=== PATIENT | female | born 1940 | race Caucasian/White ===

== ENCOUNTER → 2021-07-07 15:29 | Outpatient (CLI) | payer MEDICARE, SELFPAY ==
--- NOTE | 2021-07-07 15:39 | XR_ITS ---
PROCEDURE: XR CHEST 2V CLINICAL HISTORY: PAIN OF LT SIDE OF BODY, RIB PAIN OF LT SIDE COMPARISON: No exams were available for comparison FINDINGS: Borderline cardiomegaly without failure. Atelectatic changes are present in the left perihilar region. A 1 cm nodular opacity is noted over the posterior aspect of the left 7th rib. Patchy peripheral density noted in the left midlung laterally. There is a small left pleural effusion. Increased density is present in the left lung base medially and may in part be due to a hiatal hernia. Air-fluid level is present in the retrocardiac region on the lateral view possibly within a hiatal hernia.. Degenerative changes thoracic spine. IMPRESSION: Small left effusion with left midlung atelectasis with possible infiltrate in the left mid to upper lobe laterally and a nonspecific nodular opacity also in this region. Follow-up suggested to confirm resolution Hiatal hernia Dictated by: Cristi Wells MD 07/07/2021 16:02 Cristi Wells MD in [facility] 07/07/2021 16:02
== END ==
PROVIDERS: PCP Family Medicine; Visit Provider Family Medicine
DX: R07.81 Pleurodynia (principal)
CPT/HCPCS: 71046

== ENCOUNTER 2021-07-14 10:48 | Emergency (ER) | payer MEDICARE, SELFPAY ==
[2021-07-14 10:49] VITALS: BP 143/63; PULSE 109; RESP 16; TEMP 36.7; O2SAT 94; BMI 38.9
--- NOTE | 2021-07-14 11:06 | XR_ITS ---
PROCEDURE: XR CHEST PORTABLE CLINICAL HISTORY: pain Chest pain COMPARISON: CR XR CHEST 2V from 07/07/2021 FINDINGS: Left hemidiaphragm is elevated obscuring the left heart border and left lung base. There is increased density in the left hilar region. This could be related to patient's pulmonary artery extension weighted by patient rotation. Non rotated exam suggested when patient can tolerate to exclude the possibility of a left hilar mass. Slight increased density is present in the left upper lobe laterally similar to the previous exam. The remaining lungs are clear. Left perihilar atelectatic changes have improved. Left pleural effusion is smaller. No acute bony abnormalities. IMPRESSION: Improved left sided atelectatic change and left-sided effusion with persistent opacity in the subpleural region of the left upper lobe which could be due to an area of infiltrate or nodule. Dictated by: Cristi Wells MD 07/14/2021 12:12 Cristi Wells MD in [facility] 07/14/2021 12:12
[2021-07-14 11:36] LABS: Basophils % 0.3 % (0.1-2.0); Chloride 94 mmol/L (98-107); Eosinophils % 0.3 % (0.1-12.0); Hematocrit 51.9 % (37.0-47.0); Hemoglobin 16.2 g/dL (12.2-16.2); Lymphocytes # 1.4 K/mm3 (0.7-4.5); Lymphocytes % 10.7 % (10-50); Mean Corpuscular HGB Conc 31.3 g/dL (31.8-35.4); Mean Corpuscular Hemoglobin 26.1 pg (27.0-31.2); Mean Corpuscular Volume 83.4 fl (81-99); Mean Platelet Volume 7.7 fl (7.4-10.4); Monocytes # 0.6 K/mm3 (0.1-1.0); Monocytes % 4.3 % (1.7-9.3); Neutrophils # 10.7 K/mm3 (1.8-7.8); Neutrophils % 84.4 % (37.0-80.0); Platelet Count 349 K/mm3 (142-424); Red Blood Count 6.22 M/mm3 (4.20-5.40); Red Cell Distribution Width 15.2 % (11.5-17.5); Sodium 129 mmol/L (136-145); White Blood Count 12.6 K/mm3 (4.8-10.8)
[2021-07-14 11:38] LABS: Alanine Aminotransferase 42 U/L (12-78); Aspartate Amino Transferase 59 U/L (14-36); Blood Urea Nitrogen 9 mg/dl (7-17); Creatinine Clearance Estimated 73 mL/min (50-200); Estimated Glomerular Filt Rate 97 ml/min (>60); GFR (African American) 117 ML/MIN (>60)
[2021-07-14 11:39] LABS: Albumin Level 3.2 g/dl (3.5-5.0); Albumin/Globulin Ratio 0.8 (1.1-1.8); Alkaline Phosphatase 245 U/L (38-126); Bilirubin,Total 1.3 mg/dl (0.2-1.3); Calcium 8.8 mg/dl (8.4-10.2); Carbon Dioxide 25 mmol/L (22.0-30.0); Globulin 4.2 g/dL (1.3-3.2); Lipase 26 U/L (23-300); Total Protein,Serum 7.4 g/dl (6.3-8.2)
[2021-07-14 11:41] LABS: Glucose 531 mg/dl (74-100)
--- NOTE | 2021-07-14 11:41 | PC.NURSE ---
lab called with critical glucose on pt, pt name and verified. critical results given to FANNY ALCALA
[2021-07-14 11:53] LABS: Coronavirus 19, PCR Not Detected (NotDetected); Influenza A, PCR Not Detected (NotDetected); Influenza B, PCR Not Detected (NotDetected)
[2021-07-14 11:54] LABS: Troponin I < 0.01 ng/ml (0.00-0.034)
--- NOTE | 2021-07-14 12:55 | HMH.EDGENADL ---
ED Disposition Clinical Impression: Hyperglycemia due to type 2 diabetes mellitus Qualifiers: Diabetes mellitus assisted insulin use: without assistant terminal manager use Qualified Code(s): E11.65 - Type 2 diabetes mellitus with hyperglycemia Disposition: Home, Self-Care Condition on Discharge: Good Prescriptions: Metformin HCl [Glucophage 500mg Tablet] 500 mg PO BID #60 tab Transmission Status: Pending to [facility] Referrals: José Ulloa MD [Primary Care Provider] - 07/16/21 11:30 am Time of Disposition: 14:54 - Critical Care Critical Care Time: No Attestation: On 07/14/21, the high probability of a clinically significant, sudden or life threatening deterioration of the following system(s) required my full and direct attention, intervention and personal management. The time I documented below is in addition to time spent performing reported procedures but includes the following listed in this critical care notation. Medical Decision Making - Medical Records Medical records reviewed: Yes: I reviewed the patient's medical records. - Constantino Inquiry Pt receiving controlled substance: No Vital Signs: 07/14/21 10:49 Temperature 98.1 F Temperature Source Oral Pulse Rate [Right Radial] 109 H Respiratory Rate 16 Blood Pressure [Right Arm] 143/63 H Blood Pressure Mean [Right Arm] 89 Blood Pressure Source [Right Arm] Automatic Cuff Blood Pressure Position [Right Arm] Sitting 02 Sat by Pulse Oximetry 94 L Oxygen Delivery Method Room Air - Lab Data Lab results reviewed: Yes: I reviewed the patient's lab results. Lab Results 07/14/21 11:21: WBC 12.6 H, RBC 6.22 H, Hgb 16.2, Hct 51.9 H, MCV 83.4, MCH 26.1 L, MCHC 31.3 L, RDW 15.2, Plt Count 349, MPV 7.7, Neut % (Auto) 84.4 H, Lymph % (Auto) 10.7, [place] % (Auto) 4.3, Eos % (Auto) 0.3, Baso % (Auto) 0.3, Neut # (Auto) 10.7 H, Lymph # (Auto) 1.4, [place] # (Auto) 0.6, Eos # (Auto) 0.0, Baso # (Auto) 0.0 07/14/21 11:21: Sodium 129 L, Potassium 4.0, Chloride 94 L, Carbon Dioxide 25, Anion Gap 14.0, BUN 9, Creatinine 0.60, Estimated Creat Clear 73, Estimated GFR 97, Est GFR ( Amer) 117, Glucose 531 H*, Calcium 8.8, Total Bilirubin 1.3, AST 59 H, ALT 42, Alkaline Phosphatase 245 H, Troponin I < 0.01, Total Protein 7.4, Albumin 3.2 L, Globulin 4.2 H, Albumin/Globulin Ratio 0.8 L, Lipase 26 07/14/21 11:38: SARS-CoV-2 (PCR) Not detected, Influenza A Untype (PCR) Not detected, Influenza Type B (PCR) Not detected 07/14/21 14:10: POC Glucose 390 H* Result diagrams: 07/14/21 11:21 07/14/21 11:21 Orders (Tests/Meds): ED MEDICATIONS Discontinued Medications Generic Name Dose Route Start Last Admin Trade Name Freq PRN Reason Stop Dose Admin Lactated Ringer's 1,000 mls @ 999 mls/hr 07/14/21 11:45 07/14/21 12:47 Lactated Ringer's 1000 Ml Bag IV 07/14/21 12:45 999 mls/hr .Q1H1M LOYDA Administration Insulin Human Regular 5 unit 07/14/21 11:44 07/14/21 13:22 Insulin Human Regular 100 Units/Ml 10ml Vial IVP 07/14/21 11:45 5 unit ONCE ONE Administration ORDERS Category Date Time Status Urinalysis and Microscopic Stat Lab 07/14/21 11:05 Ordered - Radiology Data #1 Image(s): Chest Image Reviewed: Yes I reviewed the patient's radiology results Preliminary Findings: Abnormal Improved left sided atelectatic change and left-sided effusion with persistent opacity in the subpleural region of the left upper lobe which could be due to an area of infiltrate or nodule. Medical Decision Narrative: 80yo F evaluated for uncertain reasons in the emergency department. Patient is in no acute distress on initial evaluation and her vital signs are normal. Broad work-up is initiated given the patient's vague complaints and symptoms. CBC is largely unremarkable but the patient's metabolic panel reveals a glucose of over 500. The patient states she is not diabetic and takes no medication for it. Patient is provided a liter of IV fluids as well as subcu insu
[2021-07-14 14:17] LABS: POC Glucose,Bedside 390 (70-110)
--- NOTE | 2021-07-14 14:46 | PC.NURSE ---
Calling Dr Ulloa at this time
--- NOTE | 2021-07-14 14:49 | PC.NURSE ---
speaking with Dr Ulloa
[2021-07-14 15:27] VITALS: BP 164/74; PULSE 103; RESP 16; TEMP 36.7; O2SAT 92
== END 2021-07-14 15:30 | disposition home or self-care (01) ==
PROVIDERS: Emergency Provider Family Medicine; PCP Family Medicine
DX: R10.32 Left lower quadrant pain (principal); R53.83 Other fatigue; E11.65 Type 2 diabetes mellitus with hyperglycemia; Z79.84 Long term (current) use of oral hypoglycemic drugs; Z20.822 Contact with and (suspected) exposure to COVID-19
CPT/HCPCS: 71045; 80053; 82962; 83690; 84484; 85025; 96365; 96375; 99283; C9803; U0003; U0005

== ENCOUNTER 2024-06-09 09:37 | Inpatient (IN) | payer MEDICARE, SELFPAY ==
[2024-06-09] VITALS (7 sets, daily range): BP systolic 107–168; BP diastolic 56–78; PULSE 83–108; RESP 11–22; TEMP 36.5–36.7; O2SAT 93–96; BMI 26.9; BMI 26.6
--- NOTE | 2024-06-09 09:42 | HMH.EDGENADL ---
Discharge Plan Disposition Patient Disposition: Admitted Clinical Impressions Clinical Impression: Rhabdomyolysis Discharge ED Provider: Isael Palma General Adult HPI General Chief complaint: Altered Mental Status Stated complaint: AMS Time Seen by Provider: 06/09/24 09:42 History of Present Illness HPI narrative: The patient presents with acute confusion and inability to ambulate independently. The patient's family member reports that she was found in the bathroom, unable to get up on her own and not aware of her surroundings. The duration of the patient's presence in the bathroom is unknown. The patient experienced a similar episode the previous day, where she was found lying on the living room floor but was able to move around after assistance. The patient denies any recent illness, cough, shortness of breath, pain during urination, or abdominal pain. She reports neck pain and soreness in her arm and back, which may be attributed to her position in the bathroom. The patient denies any falls or injuries. She has not had breakfast prior to the episode, and her blood sugar was measured at 202 mg/dL. Please note that above description of symptoms, in this electronic medical record under categorization of recalled from ER triage doctor by RN are reflective of an initial nursing assessment, however, is not reflective of my full history and physical exam that was personally taken and clarified. Consequentially, this preceding description of symptoms, which may include the patient's categorized chief complaint in the EMR, do not reflect my personal clinical impression, and the ultimate description of history of present illness and patient stated complaints should be deferred to this section of the note. Unless stated otherwise or congruent with this section of the note, additional signs, symptoms, or incongruence should be interpreted as inaccurate with my clinical impression. Related Data Home Medications ?Medication ?Instructions ?Recorded ?Confirmed amlodipine 5 mg-benazepril 20 mg 1 cap PO DAILY 10/21/21 06/09/24 capsule blood sugar diagnostic ([employer] #10 ea 10/21/21 06/09/24 Verio test strips) blood-glucose meter ([employer]uch #1 ea 10/21/21 06/09/24 Verio Reflect Meter) insulin syringe-needle U-100 0.5 #10 ea 10/21/21 06/09/24 mL 29 gauge x 1/2 (Sure Comfort Insulin Syringe U-100) lancets 33 gauge (OneTouch [employer] #100 ea 10/21/21 06/09/24 Plus Lancet) simvastatin 20 mg tablet 20 mg PO DAILY 10/21/21 06/09/24 dapagliflozin propanediol 5 mg 5 mg PO DAILY 12/13/23 06/09/24 tablet (Farxiga) semaglutide 1 mg/dose (4 mg/3 mL) 1 mg SQ WEEKLY 06/09/24 06/09/24 subcutaneous pen injector (Ozempic) Allergies Allergy/AdvReac Type Severity Reaction Status Date / Time No Known Allergies Allergy Verified 06/06/24 14:20 [facility] Disclaimer: The information contained in this section may have been updated after the patient was seen, as this information can be updated by other users. Social History Smoking Status: Never smoker alcohol intake: never substance use type: denies use current occupational status: retired Travel in the last 8 weeks: None ROS Obtained: Yes other As per HPI Physical Exam General General appearance: alert and in no apparent distress Head Head exam: atraumatic and normocephalic Eye Eye exam: Present normal appearance Neck Neck exam: Present normal inspection Chest Chest inspection: Present normal inspection and symmetric chest wall rise Respiratory Respiratory exam: Present normal lung sounds bilaterally; Absent respiratory distress Cardiovascular Cardiovascular exam: Present regular rate and normal rhythm Abdominal Exam Abdominal exam: Present soft; Absent tenderness Extremities Exam Extremities exam: Present normal inspection and full ROM; Absent tenderness Neurological Exam Neurological exam: Present alert Psychiatric Psychiatric exam: Present normal affect and normal mood Skin Skin exam: Present warm and dry Other Other exam information: No focal neurologic deficit appreciated, sacral decubitus ulcer. Paucity of speech. Limited recollection of event. Medical Decision Making Medical Records Medical records reviewed: Yes I reviewed the patient's medical records. Constantino Inquiry Pt receiving controlled substance: No Vital Signs: 06/09/24 09:38 06/09/24 10:30 06/09/24 11:00 Temperature 97.9 F Temperature Source Oral Pulse Rate 92 H 84 Pulse Rate [Right] 108 H Respiratory Rate 22 11 L 15 Blood Pressure 141/65 H 162/76 H Blood Pressure [Right Arm] 152/73 H Blood Pressure Mean [Right Arm] 99 Blood Pressure Source Blood Pressure Source [Right Arm] Automatic Cuff 02 Sat by Pulse Oximetry 95 94 L 96 Oxygen Delivery Method Room Air Room Air Room Air 08/11/24 13:23 Temperature 98.0 F Temperature Source Oral Pulse Rate 84 Pulse Rate [Right] Respiratory Rate 19 Blood Pressure 158/78 H Blood Pressure [Right Arm] Blood Pressure Mean [Right Arm] Blood Pressure Source Automatic Cuff Blood Pressure Source [Right Arm] 02 Sat by Pulse Oximetry Oxygen Delivery Method Room Air Lab Data Lab Results 06/09/24 09:53: VBG pH 7.33, VBG pCO2 40.1, VBG pO2 44.5 H, VBG HCO3 20.7 L, VBG Total CO2 21.9 L, VBG O2 Saturation 80.7 H, VBG Base Excess -5.2 L, VBG Lactic Acid 3.5 H, Sodium 141, Potassium 4.0, Chloride 106, Carbon Dioxide 22, Anion Gap 17.0 H, BUN 31 H, Creatinine 1.20 H, Estimated GFR 43 L, Est GFR ( Amer) 52 L, Glucose 202 H, Calcium 10.0, Magnesium 2.2, Total Bilirubin 2.0 H, AST 130 H, ALT 63, Alkaline Phosphatase 114, Total Creatine Kinase 3963 H*, Total Protein 9.0 H, Albumin 4.8, Globulin 4.2 H, Albumin/Globulin Ratio 1.1, Lipase 76 06/09/24 10:17: Urine Color Yellow, Urine Appearance Clear, Urine pH 5.5, Ur Specific [place] 1.015, Urine Protein Trace, Urine Glucose (UA) 3+, Urine Ketones 1+, Urine Blood 2+, Urine Nitrate Negative, Urine Bilirubin Negative, Urine Urobilinogen 0.2, Ur Leukocyte Esterase Negative, Urine RBC 3-5, Urine WBC Occasional, Ur Squamous Epith Cells 3-5, Urine Bacteria Trace, Hyaline Casts Occasional, Urine Mucus Trace 06/09/24 10:25: WBC 12.4 H, RBC 5.97 H, Hgb 17.2 H, Hct 55.8 H, MCV 93.4, MCH 28.9, MCHC 30.9 L, RDW 14.0, Plt Count 311, MPV 8.3, Neut % (Auto) 84.2 H, Lymph % (Auto) 9.1 L, [place] % (Auto) 5.4, Eos % (Auto) 0.9, Baso % (Auto) 0.4, Neut # (Auto) 10.5 H, Lymph # (Auto) 1.1, [place] # (Auto) 0.7, Eos # (Auto) 0.1, Baso # (Auto) 0.1 06/09/24 10:25 06/09/24 09:53 Orders (Tests/Meds): ED MEDICATIONS Generic Name Dose Route Start Last Admin Trade Name Freq PRN Reason Stop Dose Admin Acetaminophen 650 mg 06/09/24 13:01 Acetaminophen 325mg Tab PO 07/09/24 13:00 Q4HP PRN Fever or Mild Pain (1-3) Heparin Sodium (Porcine) 5,000 unit 06/09/24 13:15 06/09/24 13:59 Heparin Sodium 5,000 Unit/Ml Vial SQ 07/09/24 13:14 5,000 unit Q8H LOYDA Administration Sodium Chloride 1,000 mls @ 50 mls/hr 06/09/24 13:15 06/09/24 13:59 Sod Chlor 0.9% 1000ml Bag IV 07/09/24 13:14 50 mls/hr .Q20H LOYDA Administration Ondansetron HCl 4 mg 06/09/24 13:01 Ondansetron 4mg/2ml Vial IV 07/09/24 13:00 Q8HP PRN Nausea Discontinued Medications Generic Name Dose Route Start Last Admin Trade Name Freq PRN Reason Stop Dose Admin Lactated Ringer's 1,000 mls @ 999 mls/hr 06/09/24 10:24 06/09/24 11:09 Lactated Ringer's 1000 Ml Bag IV 06/09/24 11:24 Not Given .Q1H1M ONE Lactated Ringer's 1,570 mls @ 785 mls/hr 06/09/24 10:59 06/09/24 10:30 Lactated Ringer's 1000 Ml Bag 30 ml/kg infuse over 2 hr (1570 ml) 06/09/24 12:58 785 mls/hr IV Administration .Q2H ONE ORDERS Category Date Time Status CT cervical spine wo con Stat Cat Scan 06/09/24 09:[address] head/brain wo con Stat Cat Scan 06/09/24 09:58 Completed XR chest portable Stat Exams 06/09/24 10:58 Completed Basic Metabolic Panel AMLAB Lab 06/10/24 06:00 Ordered Basic Metabolic Panel AMLAB Lab 06/11/24 06:00 Ordered Basic Metabolic Panel AMLAB Lab 06/12/24 06:00 Ordered CBC w/Auto Diff [Complete Blood Count Auto Diff] Stat Lab 06/09/24 10:25 Completed CK [Creatine Kinase] Stat Lab 06/09/24 09:53 Completed CMP [Comprehensive Metabolic Panel] Stat Lab 06/09/24 09:53 Completed Complete Blood Count Auto Diff AMLAB Lab 06/10/24 06:00 Ordered Complete Blood Count Auto Diff AMLAB Lab 06/11/24 06:00 Ordered Complete Blood Count Auto Diff AMLAB Lab 06/12/24 06:00 Ordered Lipase Stat Lab 06/09/24 09:53 Completed MAG [Magnesium] Stat Lab 06/09/24 09:53 Completed Urinalysis and Microscopic Stat Lab 06/09/24 10:17 Completed Blood Culture Stat Micro 06/09/24 08:53 Received Urine Culture Stat Micro 06/09/24 10:17 Received VBG [Venous Blood Gas] Stat RT 06/09/24 09:53 Completed Medical Decision Narrative: Patient with history and exam per above presenting for evaluation of altered mental status Diagnoses considered include electrolyte abnormality, intracranial hemorrhage, no clinical evidence to suggest stroke at this time, differential also includes hypoglycemia, hypovolemia, electrolyte abnormality, infectious precipitant. ED workup and treatment included: ED MEDICATIONS Generic Name Dose Route Start Last Admin Trade Name Freq PRN Reason Stop Dose Admin Acetaminophen 650 mg 06/09/24 13:01 Acetaminophen 325mg Tab PO 07/09/24 13:00 Q4HP PRN Fever or Mild Pain (1-3) Heparin Sodium (Porcine) 5,000 unit 06/09/24 13:15 06/09/24 13:59 Heparin Sodium 5,000 Unit/Ml Vial SQ 07/09/24 13:14 5,000 unit Q8H LOYDA Administration Sodium Chloride 1,000 mls @ 50 mls/hr 06/09/24 13:15 06/09/24 13:59 Sod Chlor 0.9% 1000ml Bag IV 07/09/24 13:14 50 mls/hr .Q20H LOYDA Administration Ondansetron HCl 4 mg 06/09/24 13:01 Ondansetron 4mg/2ml Vial IV 07/09/24 13:00 Q8HP PRN Nausea Discontinued Medications Generic Name Dose Route Start Last Admin Trade Name Freq PRN Reason Stop Dose Admin Lactated Ringer's 1,000 mls @ 999 mls/hr 06/09/24 10:24 06/09/24 11:09 Lactated Ringer's 1000 Ml Bag IV 06/09/24 11:24 Not Given .Q1H1M ONE Lactated Ringer's 1,570 mls @ 785 mls/hr 06/09/24 10:59 06/09/24 10:30 Lactated Ringer's 1000 Ml Bag 30 ml/kg infuse over 2 hr (1570 ml) 06/09/24 12:58 785 mls/hr IV Administration .Q2H ONE ORDERS Category Date Time Status CT cervical spine wo con Stat Cat Scan 06/09/24 09:[address] head/brain wo con Stat Cat Scan 06/09/24 09:58 Completed XR chest portable Stat Exams 06/09/24 10:58 Completed Basic Metabolic Panel AMLAB Lab 06/10/24 06:00 Ordered Basic Metabolic Panel AMLAB Lab 06/11/24 06:00 Ordered Basic Metabolic Panel AMLAB Lab 06/12/24 06:00 Ordered CBC w/Auto Diff [Complete Blood Count Auto Diff] Stat Lab 06/09/24 10:25 Completed CK [Creatine Kinase] Stat Lab 06/09/24 09:53 Completed CMP [Comprehensive Metabolic Panel] Stat Lab 06/09/24 09:53 Completed Complete Blood Count Auto Diff AMLAB Lab 06/10/24 06:00 Ordered Complete Blood Count Auto Diff AMLAB Lab 06/11/24 06:00 Ordered Complete Blood Count Auto Diff AMLAB Lab 06/12/24 06:00 Ordered Lipase Stat Lab 06/09/24 09:53 Completed MAG [Magnesium] Stat Lab 06/09/24 09:53 Completed Urinalysis and Microscopic Stat Lab 06/09/24 10:17 Completed Blood Culture Stat Micro 06/09/24 08:53 Received Urine Culture Stat Micro 06/09/24 10:17 Received VBG [Venous Blood Gas] Stat RT 06/09/24 09:53 Completed Labs were independently interpreted by me, significant for acute kidney injury, CK 3963, consistent with rhabdomyolysis. Chronic leukocytosis. Imaging was independently visualized and interpreted by me, significant for no acute finding Please refer to radiology report for full details. My clinical impression at this time is most consistent with rhabdomyolysis. Patient will be admitted to hospital medicine service for further management. Critical Care Critical Care Time Critical Care Time: No
--- NOTE | 2024-06-09 09:52 | PC.NURSE ---
DR SEALS AT BEDSIDE
--- NOTE | 2024-06-09 09:58 | CT_ITS ---
PROCEDURE INFORMATION: Exam: CT Head Without Contrast Exam date and time: 06/09/2024 11:17 AM Age: 83 years old Clinical indication: Injury or trauma; Fall; Additional info: AMS, recent fall TECHNIQUE: Imaging protocol: Computed tomography of the head without contrast. Radiation optimization: All CT scans at this facility use at least one of these dose optimization techniques: automated exposure control; mA and/or kV adjustment per patient size (includes targeted exams where dose is matched to clinical indication); or iterative reconstruction. COMPARISON: No relevant prior studies available. FINDINGS: Brain: Extensive hypodensity is seen in the periventricular cerebral white matter. This change is nonspecific but is most likely secondary to chronic ischemia within microvascular distributions. No other intra or extra-axial masses, lesions or collections. [place] white matter distinction is maintained throughout the brain. No radiographic evidence of intracranial hemorrhage. No radiographic evidence of acute intracranial pathology. Cerebral ventricles: Ventricles are enlarged on the basis of mild diffuse cerebral volume loss. Paranasal sinuses: Polyp versus retention cyst within the left maxillary sinus. Mastoid air cells: Visualized mastoid air cells are well aerated. Bones: Unremarkable. No acute fracture. Soft tissues: Unremarkable. IMPRESSION: No radiographic evidence of acute intracranial pathology. Extensive small vessel ischemic changes.
--- NOTE | 2024-06-09 09:58 | CT_ITS ---
PROCEDURE INFORMATION: Exam: CT Cervical Spine Without Contrast Exam date and time: 06/09/2024 11:20 AM Age: 83 years old Clinical indication: Injury or trauma; Additional info: AMS, recent fall TECHNIQUE: Imaging protocol: Computed tomography of the cervical spine without contrast. Radiation optimization: All CT scans at this facility use at least one of these dose optimization techniques: automated exposure control; mA and/or kV adjustment per patient size (includes targeted exams where dose is matched to clinical indication); or iterative reconstruction. COMPARISON: CT HEAD/BRAIN WO CON 06/09/2024 11:17 AM FINDINGS: Bones: Alignment normal. posterior vertebral line and the spinal laminar line normal. odontoid process normal. no fracture. degenerative disc disease most pronounced C4-C5, C5-C6 and C6-C7 reflected as disk space narrowing and anterior osteophyte formation. Paranasal sinuses: Polyp versus retention cyst within the left maxillary sinus. Lungs: Lung apices are normal. Vasculature: Dense carotid vascular calcifications Soft tissues: Unremarkable. IMPRESSION: Degenerative disc disease most pronounced C4-C5, C5-C6 and C6-C7 reflected as disk space narrowing and anterior osteophyte formation.
--- NOTE | 2024-06-09 09:59 | PC.NURSE ---
notified resp of vbg order
[2024-06-09 10:01] LABS: VBG Base Excess -5.2 mmol/L (-2.4-2.3); VBG HCO3 20.7 mmol/L (23-30); VBG Oxygen Saturation 80.7 % (50-70); VBG PCO2 40.1 mmol/L (35-51); VBG PH 7.33 mmol/L (7.31-7.41); VBG PO2 44.5 mmol/L (28-40); VBG Total CO2 21.9 mmol/L (23-27)
[2024-06-09 10:02] LABS: Lactate Venous 3.5 mmol/L (0.4-2.0)
[2024-06-09 10:11] LABS: Albumin Level 4.8 g/dl (3.5-5.0); Chloride 106 mmol/L (98-107); Sodium 141 mmol/L (136-145)
[2024-06-09 10:14] LABS: Alanine Aminotransferase 63 U/L (12-78); Albumin/Globulin Ratio 1.1 (1.1-1.8); Alkaline Phosphatase 114 U/L (38-126); Aspartate Amino Transferase 130 U/L (14-36); Blood Urea Nitrogen 31 mg/dl (7-17); Carbon Dioxide 22 mmol/L (22.0-30.0); Estimated Glomerular Filt Rate 43 ml/min (>60); GFR (African American) 52 ML/MIN (>60); Globulin 4.2 g/dL (1.3-3.2); Magnesium 2.2 mg/dl (1.6-2.3)
[2024-06-09 10:15] LABS: Glucose 202 mg/dl (74-100)
[2024-06-09 10:29] LABS: Microscopic, Urine URINE MICROSCOPIC (MICROSCOPIC)
[2024-06-09 10:30] LABS: Appearance,Urine CLEAR (Clear); Bilirubin,Urine Negative (Negative); Blood, Urine 2+ (Negative); Color,Urine YELLOW (Yellow); Glucose,Urine (UA) 3+ (Negative); Ketones,Urine 1+ (Negative); Leukocyte Esterase,Urine Negative (Negative); Nitrate,Urine Negative (Negative); PH,Urine 5.5 (5.0-8.5); Protein,Urine TRACE (Negative); Specific Gravity, Urine 1.015 (1.005-1.030); Urobilinogen,Urine 0.2 EU/dl (0.2)
[2024-06-09] MEDS: LACTATED RINGERS 1000ML 1,570 ML 785 ML IV (10:30)
[2024-06-09 10:36] LABS: Basophils # 0.1 K/mm3 (0-0.2); Basophils % 0.4 % (0.1-2.0); Eosinophils # 0.1 K/mm3 (0.0-0.4); Eosinophils % 0.9 % (0.1-12.0); Hematocrit 55.8 % (37.0-47.0); Hemoglobin 17.2 g/dL (12.2-16.2); Lymphocytes # 1.1 K/mm3 (0.7-4.5); Lymphocytes % 9.1 % (10-50); Mean Corpuscular HGB Conc 30.9 g/dL (31.8-35.4); Mean Corpuscular Hemoglobin 28.9 pg (27.0-31.2); Mean Corpuscular Volume 93.4 fl (81-99); Mean Platelet Volume 8.3 fl (7.4-10.4); Monocytes # 0.7 K/mm3 (0.1-1.0); Monocytes % 5.4 % (1.7-9.3); Neutrophils # 10.5 K/mm3 (1.8-7.8); Neutrophils % 84.2 % (37.0-80.0); Platelet Count 311 K/mm3 (142-424); Red Blood Count 5.97 M/mm3 (4.20-5.40); White Blood Count 12.4 K/mm3 (4.8-10.8)
[2024-06-09 10:38] LABS: Bacteria,Urine Trace /lpf; Hyaline Casts,Urine Occasional #/lpf (0); Mucus,Urine Trace /lpf; WBC,Urine Occasional #/hpf (0-3)
[2024-06-09 10:43] LABS: Lipase 76 U/L (23-300)
--- NOTE | 2024-06-09 10:58 | XR_ITS ---
PROCEDURE INFORMATION: Exam: XR Chest Exam date and time: 06/09/2024 11:18 AM Age: 83 years old Clinical indication: Other: AMS; Additional info: AMS, concern for pna TECHNIQUE: Imaging protocol: Radiologic exam of the chest. Views: 1 view. COMPARISON: CR XR CHEST PORTABLE 07/14/2021 11:29 AM FINDINGS: Lungs: Regions of parenchymal scarring left lung base. Pleural spaces: Minimal blunting left costophrenic angle. Could not exclude small pleural effusion. Heart/Mediastinum: Unremarkable. No cardiomegaly. Bones/joints: Unremarkable. IMPRESSION: Minimal blunting left costophrenic angle. Could not exclude small pleural effusion.
--- NOTE | 2024-06-09 11:09 | PC.NURSE ---
I let Dr. Palma know that with s suspected infection, 2 SIRS, and Lactic of 3.4 pt meets severe sepsis risk. He wants to hold off on antibiotics at this time as urine is likely not the source now so I put in a chest xray .
--- NOTE | 2024-06-09 11:15 | PC.NURSE ---
Pt has been taken to ct scan via stretcher. I did ask Dr. Palma if he'd like to add on a ct abd/pelv d/t the elevated bilirubin, hematuria, and family concerns of pelvic mesh surgery hx. Dr. Palma stated he does not wish to scan her abd/pelv at this time as she was not tender on exam.
[2024-06-09 12:58] LABS: Creatine Kinase 3963 U/L (30-135)
--- NOTE | 2024-06-09 12:59 | PC.NURSE ---
DR SEALS SPEAKING WITH DR HUNTER FOR ADMISSION
--- NOTE | 2024-06-09 13:09 | PC.NURSE ---
DERRICK WORKER NOTIFIED OF ADMISSION
--- NOTE | 2024-06-09 13:22 | PC.NURSE ---
Gave report to Ab Ham RN on Med/Surg
[2024-06-09] MEDS: HEPARIN SODIUM 5,000 UNIT/ML VIAL 5000 UNIT SQ ×2 (13:59→21:15)
[2024-06-09] MEDS: 0.9 % SODIUM CHLORIDE 1000ML 1,000 ML 50 ML IV (13:59)
[2024-06-09 14:03] LABS: Reflex Lactic Add Lactic Reflex
--- NOTE | 2024-06-09 14:21 | HMH.PHAINT1 ---
Pharmacy Intervention Comments: MEDICATION RECONCILIATION COMPLETE USING EXTERNAL PHARMACY FILL HISTORY AND MOST RECENT PODIATRY OFFICE NOTE.
[2024-06-09 14:47] LABS: Lactic Acid Follow Up (RFLX 1) 1.7 mmol/L (0.7-2.1)
--- NOTE | 2024-06-09 16:28 | P.HP_ITS ---
History of Present Illness *Admission Date: 06/09/24 *Reason for visit:: Fall *History of present illness: Patient is a 83-year-old female with past medical history of diabetes mellitus who presents to the hospital due to complaints of difficulty ambulation as well as generalized weakness. According to the patient's family patient has been feeling very weak and was not able to get out of the bath, I felt. Patient was found lying down on the ground in the living room. Patient otherwise denied chest pain shortness of breath nausea vomiting diarrhea constipation dysuria. On further evaluation patient was found to have elevated creatinine and CK levels. [facility] Disclaimer: The information contained in this section may have been updated after the patient was seen, as this information can be updated by other users. Social History Smoking Status: Never smoker alcohol intake: never substance use type: denies use current occupational status: retired Travel in the last 8 weeks: None Review of Systems Review of Systems Review of systems:: pertinent systems reviewed and negative unless documented below Meds Home Medications and Allergies Home Medications ?Medication ?Instructions ?Recorded ?Confirmed ?Type amlodipine 5 mg-benazepril 20 mg 1 cap PO DAILY 10/21/21 06/09/24 History capsule blood sugar diagnostic (OneTouch #10 ea 10/21/21 06/09/24 History Verio test strips) blood-glucose meter (OneTouch #1 ea 10/21/21 06/09/24 History Verio Reflect Meter) insulin syringe-needle U-100 0.5 #10 ea 10/21/21 06/09/24 History mL 29 gauge x 1/2 (Sure Comfort Insulin Syringe U-100) lancets 33 gauge (OneTouch Delica #100 ea 10/21/21 06/09/24 History Plus Lancet) simvastatin 20 mg tablet 20 mg PO DAILY 10/21/21 06/09/24 History dapagliflozin propanediol 5 mg 5 mg PO DAILY 12/13/23 06/09/24 History tablet (Farxiga) semaglutide 1 mg/dose (4 mg/3 mL) 1 mg SQ WEEKLY 06/09/24 06/09/24 History subcutaneous pen injector (Ozempic) New Prescriptions to Start Prescriptions: Allergies Allergy/AdvReac Type Severity Reaction Status Date / Time No Known Allergies Allergy Verified 06/06/24 14:20 Exam Data for Last 24 hours Vital signs and Labs for Last 24 Hours: Temp Pulse Resp BP Pulse Ox O2 Del Method 97.7 F 83 17 141/77 H 93 L Room Air 06/09/24 13:50 06/09/24 13:50 06/09/24 13:50 06/09/24 13:50 06/09/24 13:50 06/09/24 13:50 Laboratory Results - last 24 hr 06/09/24 09:53: VBG pH 7.33, VBG pCO2 40.1, VBG pO2 44.5 H, VBG HCO3 20.7 L, VBG Total CO2 21.9 L, VBG O2 Saturation 80.7 H, VBG Base Excess -5.2 L, VBG Lactic Acid 3.5 H, Sodium 141, Potassium 4.0, Chloride 106, Carbon Dioxide 22, Anion Gap 17.0 H, BUN 31 H, Creatinine 1.20 H, Estimated GFR 43 L, Est GFR ( Amer) 52 L, Glucose 202 H, Calcium 10.0, Magnesium 2.2, Total Bilirubin 2.0 H, AST 130 H, ALT 63, Alkaline Phosphatase 114, Total Creatine Kinase 3963 H*, Total Protein 9.0 H, Albumin 4.8, Globulin 4.2 H, Albumin/Globulin Ratio 1.1, Lipase 76 06/09/24 10:17: Urine Color Yellow, Urine Appearance Clear, Urine pH 5.5, Ur Specific [place] 1.015, Urine Protein Trace, Urine Glucose (UA) 3+, Urine Ketones 1+, Urine Blood 2+, Urine Nitrate Negative, Urine Bilirubin Negative, Urine Urobilinogen 0.2, Ur Leukocyte Esterase Negative, Urine RBC 3-5, Urine WBC Occasional, Ur Squamous Epith Cells 3-5, Urine Bacteria Trace, Hyaline Casts Occasional, Urine Mucus Trace 06/09/24 10:25: WBC 12.4 H, RBC 5.97 H, Hgb 17.2 H, Hct 55.8 H, MCV 93.4, MCH 28.9, MCHC 30.9 L, RDW 14.0, Plt Count 311, MPV 8.3, Neut % (Auto) 84.2 H, Lymph % (Auto) 9.1 L, [place] % (Auto) 5.4, Eos % (Auto) 0.9, Baso % (Auto) 0.4, Neut # (Auto) 10.5 H, Lymph # (Auto) 1.1, [place] # (Auto) 0.7, Eos # (Auto) 0.1, Baso # (Auto) 0.1 06/09/24 14:15: Lactate 1.7 I & O for Last 24 hours: Intake & Output 06/06/24 06/07/24 06/08/24 06/09/24 23:59 23:59 23:59 23:59 Intake Total 1800 / 1800 Balance 1800 / 1800 Weight 68.294 kg Constitutional Constitutional: no acute distress *Routine HEENT Exam Head: Present normocephalic Eye: Present EOMI and PERRL ENT: Present mucous membranes moist *Routine Neck Exam Neck: Present supple; Absent lymphadenopathy *Routine Respiratory Exam Respiratory: Present CTA bilaterally *Routine Cardiovascular Exam Cardiovascular: Present RRR *Routine Abdominal Exam Abdominal: Present soft and normoactive bowel sounds; Absent tenderness *Routine Rectal Exam Rectal:: deferred *Routine Genitalia Exam Genitalia:: deferred *Routine Extremities Exam Extremities: Absent cyanosis, clubbing or edema *Routine Skin Exam Skin: Present warm; Absent rash *Routine Neurological Exam Neurological: Present alert and oriented X3 Assessment and Plan *Assessment and plan (1) Rhabdomyolysis: Status: Acute Category: Medical Code(s): M62.82 - Rhabdomyolysis (2) Type 2 diabetes mellitus: Status: Acute Qualifiers: Diabetes mellitus group home insulin use: with safety net maker use Diabetes mellitus complication status: with other specified complication Qualified Code(s): E11.69 - Type 2 diabetes mellitus with other specified complication; Z79.4 - custodial (current) use of insulin Category: Medical Code(s): E11.9 - Type 2 diabetes mellitus without complications (3) PEACE (acute kidney injury): Status: Acute Category: Medical Code(s): N17.9 - Acute kidney failure, unspecified Plan Patient is a 83-year-old female with past medical history of diabetes mellitus who presents to the hospital due to complaints of difficulty ambulation as well as generalized weakness. According to the patient's family patient has been feeling very weak and was not able to get out of the bath, I felt. Patient was found lying down on the ground in the living room. Patient otherwise denied chest pain shortness of breath nausea vomiting diarrhea constipation dysuria. On further evaluation patient was found to have elevated creatinine and CK levels. Assessment and plan Generalized weakness, difficulty ambulation likely secondary to rhabdomyolysis Acute kidney injury Start IV fluids with normal saline Monitor CK level and creatinine level Holding statins Monitor and replace electrolytes Hold nephrotoxic medications Diabetes mellitus Insulin sliding scale DVT PPx - Heparin
[2024-06-09 18:36] LABS: Creatine Kinase 4472 U/L (30-135)
[2024-06-09 20:22] LABS: POC Glucose,Bedside 227 (70-110)
[2024-06-09] MEDS: humaLOG 100 UNITS/ML 10ML VIAL (SSI) SQ (22:14)
--- NOTE | 2024-06-10 00:27 | PC.WOUNDNOTE ---
unstagable to left buttock
[2024-06-10] MEDS: NYSTATIN TOPICAL POWDER 30GM TP ×3 (00:57→21:01)
[2024-06-10] MEDS: ACETAMINOPHEN 325MG TAB 650 MG PO (01:15)
[2024-06-10] MEDS: 0.9 % SODIUM CHLORIDE 1000ML 1,000 ML 125 ML IV ×2 (03:06→15:12)
--- OUTSIDE RECORDS SUMMARY | 2024-06-10 03:22 | XMS_ITS ---
Author Organization [facility] No information ASSESSMENT No information CHIEF COMPLAINT No information Vital Signs Bpsitting Date Temperature Heartrate Weight Height Spo2 Bmi Fiel dcount Timerecorded 164/80 2023- 3-05 97.9 95 165,0 5,3 95 29.2 3 7 10:15 OBJECTIVE DATA No information PHYSICAL EXAMINATION No information TREATMENT PLAN No information PROBLEMS No information RESULTS No information REVIEW OF SYSTEMS No information SUBJECTIVE DATA No information MEDICATIONS No information
--- OUTSIDE RECORDS SUMMARY | 2024-06-10 03:22 | XMS_ITS ---
Author Name Dayday Acosta Address [address] [place] [id number] Organization Unknown Address [address] [place] [id number] [facility] No information ASSESSMENT No information CHIEF COMPLAINT No information MEDICATIONS No information OBJECTIVE DATA No information PHYSICAL EXAMINATION No information TREATMENT PLAN Planned Care Start Date Provider Encounter for Check-up [id number] AC Navarro PROBLEMS No information RESULTS No information REVIEW OF SYSTEMS No information SUBJECTIVE DATA No information VITAL SIGNS No information
[2024-06-10 04:00] VITALS: BP 129/58; PULSE 87; RESP 16; TEMP 36.8; O2SAT 94; BMI 27.6
--- NOTE | 2024-06-10 05:25 | PC.NURSE ---
Alert to name, birthday, and place. Developed low grade fever, treated per dec, no fever as of 399 vital signs. Pt answers most yes/no questions, but does not say a lot. Q2 turn. Unstagable noted to upper buttock. [place]ne area excoriated. Nystatin powder applied. Stage 2 noted to Right heel, padded patch applied, heel protectors in place. No complaints from patient, has rested well throughout the shift. ACHS FS, treated per dec. Bed alarm on, call light in reach.
[2024-06-10] MEDS: HEPARIN SODIUM 5,000 UNIT/ML VIAL 5000 UNIT SQ ×3 (06:14→20:54)
[2024-06-10 06:28] LABS: Basophils # 0.1 K/mm3 (0-0.2); Basophils % 0.6 % (0.1-2.0); Eosinophils % 0.2 % (0.1-12.0); Hematocrit 41.3 % (37.0-47.0); Lymphocytes # 1.9 K/mm3 (0.7-4.5); Lymphocytes % 22.5 % (10-50); Mean Corpuscular HGB Conc 36.5 g/dL (31.8-35.4); Mean Corpuscular Hemoglobin 34.2 pg (27.0-31.2); Mean Corpuscular Volume 93.6 fl (81-99); Mean Platelet Volume 8.4 fl (7.4-10.4); Monocytes # 0.5 K/mm3 (0.1-1.0); Monocytes % 6.1 % (1.7-9.3); Neutrophils # 6.1 K/mm3 (1.8-7.8); Neutrophils % 70.6 % (37.0-80.0); Platelet Count 230 K/mm3 (142-424); Red Blood Count 4.41 M/mm3 (4.20-5.40); Red Cell Distribution Width 14.2 % (11.5-17.5); White Blood Count 8.6 K/mm3 (4.8-10.8)
[2024-06-10 06:39] LABS: Hemoglobin 14.9 g/dL (12.2-16.2)
[2024-06-10 06:41] LABS: Anion Gap 7.6 mEq/L (5-15); Blood Urea Nitrogen 27 mg/dl (7-17); Calcium 8.6 mg/dl (8.4-10.2); Carbon Dioxide 24 mmol/L (22.0-30.0); Chloride 117 mmol/L (98-107); Creatinine Clearance Estimated 48 mL/min (50-200); Estimated Glomerular Filt Rate 69 ml/min (>60); GFR (African American) 83 ML/MIN (>60); Glucose 139 mg/dl (74-100); Potassium 3.6 mmoL/L (3.5-5.1); Sodium 145 mmol/L (136-145)
[2024-06-10 08:00] VITALS: BP 148/72; PULSE 78; RESP 16; TEMP 36.8; O2SAT 94
[2024-06-10] MEDS: DAPAGLIFLOZIN PROPANEDIOL 10 MG TABLET 5 MG PO (09:12)
--- NOTE | 2024-06-10 09:48 | HMH.PTEV ---
Physical Therapy Evaluation Rehab PT IP Evaluation Start: 06/10/24 07:55 Freq: ONCE Status: Active Protocol: Document 06/10/24 09:33 CHAVO (Rec: 06/10/24 09:47 CHAVO [id number]) Subjective/History History History H&P: Patient is a 83-year-old female with past medical history of diabetes mellitus who presents to the hospital due to complaints of difficulty ambulation as well as generalized weakness. According to the patient's family patient has been feeling very weak and was not able to get out of the bath, I felt. Patient was found lying down on the ground in the living room. Patient otherwise denied chest pain shortness of breath nausea vomiting diarrhea constipation dysuria. On further evaluation patient was found to have elevated creatinine and CK levels. Subjective Subjective Pt is questionable historian. Pt demo'd slow processing and unable to answer some questions. Pt reports she lives with her who is there during the day. Pt reports she was IND prior to admission without use of assist device. New diagnosis of cancer in past 12 No months? Rehab PT IP Eval Objective Appearance Patient Behavior Confused Patient Orientation Person Difficulty following instructions moderate Speech Pattern Soft-Spoken Ambulation Patient Able to Ambulate Yes Ambulation Observation IP General Gait Pattern Observation Wide Based Gait Ambulation Distance (feet) 3 Ambulation Assistive Device None Ambulation Ability Minimal x 1 (25% assist) Balance Ability to Arise Able, uses arms to help Sitting Balance Steady, safe Standing Balance Unsteady Transfers Bed Transfer Ability Moderate x 1 (50% assist) Sit to Stand Bed Transfer Ability Minimal x 1 (25% assist) Rehab PT IP prob,goals,plan Problems Date of Evaluation: 06/10/24 PT IP Problems Bed Mobility,Transfers,Gait, Balance,Self care,Safety Rehab Potential Rehab Potential Good Equipment Needs Assistive Devices Rolling / Wheeled Walker Plan PT Intervention Plan Bed Mobility,Transfers,Gait, Balance,Safety,Therapeutic Exercise Other Intervention Plan 1-2 times PT Plan Frequency Daily Duration LOS Discharge Goals Bed Transfer Ability Minimal x 1 (25% assist) Sit to Stand Chair Transfer Ability Contact Guard/Hand Hold Ambulation Assistive Device Rolling Walker Ambulation Distance (feet) 30 Discharge Plan PT Discharge Plan Initial physical therapy evaluation performed. Patient presents below baseline at this time in functional mobility, transfers, gait, and strength. Pt with difficulty following one-step commands at times. Pt required multiple cues to perform functional mobility. Pt not safe to return home at this time d/t current level of functional mobility. PT recommending short-term rehabilitation stay upon d/c from [facility]. Pt may be safe to d/c home with assistance as needed by family and PT services if pt demo 's improved mobility while at [facility]. Pt would benefit from skilled acute care PT to prevent further functional decline and maximize safety with mobility. Eval Complexity Eval Charge Codes 87752 - Moderate Complexity PHYSICIAN CERTIFICATION: I certify the specified therapy services for Melissa Addison are required, authorized, and reviewed every 30 days.
--- NOTE | 2024-06-10 10:07 | HMH.OTEV ---
OT Inpatient Evaluation Rehab OT IP Evaluation Start: 06/10/24 07:55 Freq: ONCE Status: Active Protocol: Document 06/10/24 09:53 HANYLEAH (Rec: 06/10/24 10:06 ARMIN [id number]) Rehab OT IP Assessment Subjective History Patient is a 83-year-old female with past medical history of diabetes mellitus who presents to the hospital due to complaints of difficulty ambulation as well as generalized weakness. According to the patient's family patient has been feeling very weak and was not able to get out of the bath, I felt. Patient was found lying down on the ground in the living room. Patient otherwise denied chest pain shortness of breath nausea vomiting diarrhea constipation dysuria. On further evaluation patient was found to have elevated creatinine and CK levels. Patient reported living in 1 story home with 1-2 RUTH. Patient reported to live with . Independent with ADLs and fx'l mobility prior to hospitalization. Subjective I can get up. Instructed Patient on safety awareness to complete sit-> stand -> step forward/ backwards ~3-4 steps. No LOB noted. Needing Mod/Min A for fx'l mobility. Objective Patient Orientation Person,Place,Name,Age,Birthday ,Year Right Upper Extremity Gross ROM WFL Left Upper Extremity Gross ROM WFL Transfer Training Sit/Stand Transfer Assist Level Minimal x 1 (25% assist) Chair Transfer Ability Minimal x 1 (25% assist) Chair Transfer Technique Sit to/from Ambulatory Chair Transfer Assistive Devices None Rehab OT IP prob,goals,plan Problems Date of Evaluation: 06/10/24 OT IP Problems Bed Mobility,Transfers,Balance ,Self care,Safety Rehab Potential Rehab Potential Good Equipment Needs Assistive Devices Rolling / Wheeled Walker Plan OT intervention Plan Bed Mobility,Transfers,Balance ,Self care,Safety,Therapeutic Exercise OT Plan Frequency Daily Duration LOS Discharge Goals Sit to Stand Chair Transfer Ability Contact Guard/Hand Hold Chair Transfer Ability Contact Guard/Hand Hold Chair Transfer Technique Sit to/from Ambulatory Chair Transfer Assistive Devices Rolling Walker Discharge Plan OT Discharge Plan Recommend patient to return home with services. Patient to continue skilled OT services while here at [facility]. Eval Complexity Eval Charge Codes 81031 - Low Complexity PHYSICIAN CERTIFICATION: I certify the specified therapy services for Melissa Ortegat are required, authorized, and reviewed every 30 days.
[2024-06-10] MEDS: 0.9 % SODIUM CHLORIDE 1000ML 500 ML 999 ML IV (10:32)
[2024-06-10] MEDS: humaLOG 100 UNITS/ML 10ML VIAL (SSI) SQ (11:06)
[2024-06-10 11:14] LABS: POC Glucose,Bedside 178 (70-110)
--- NOTE | 2024-06-10 12:45 | SW/DCPLANNER ---
Addendum entered by Manisha Lan 06/12/24 08:06: Jen nguyen/ [facility] stated that patient has been approved SNF level of care. Per MD patient will discharge today. Addendum entered by Manisha Lan 06/11/24 13:19: Per Jen nguyen/ [facility] precert is still pending at this time. Addendum entered by Manisha Lan 06/11/24 07:36: Jen nguyen/ [facility] Portillo evaluated patient at bedside yesterday and precert was started. Original Note: I spoke w/ this patient regarding plans at time of discharge. PT/OT evaluated patient and recommended SNF level of care. Patient, and son were all present in patient's room during my visit. Patient/family are agreeable to placement at [facility]. Per Jen Portillo they do have a female bed available and they are in network w/ patient's insurance. I will follow up w/ Jen once information is reviewed. Discharge date is unknown at this time.
--- NOTE | 2024-06-10 15:19 | PC.NURSE ---
pt has remained alert to self and place throughout shift. pt remains on room air. pt has had no complaints throughout shift. pt has remained in the chair this shift. family members came to visit this afternoon. family aware of placement for rehab. pt had 500ml bolus earlier in this shift per hospitalist. no new orders at this time. call light within reach.
[2024-06-10 16:00] VITALS: BP 152/67; PULSE 72; RESP 18; TEMP 36.7; O2SAT 93
[2024-06-10 16:17] LABS: POC Glucose,Bedside 101 (70-110)
[2024-06-10] MEDS: PRO-STAT AWC 30ML LIQUID PACKET 30 ML PO (20:54)
[2024-06-10 21:16] LABS: POC Glucose,Bedside 135 (70-110)
[2024-06-11] VITALS (7 sets, daily range): BP systolic 149–190; BP diastolic 67–86; PULSE 82–96; RESP 16–18; TEMP 36.3–36.9; O2SAT 92–98; BMI 28.7
[2024-06-11] MEDS: 0.9 % SODIUM CHLORIDE 1000ML 1,000 ML 125 ML IV ×3 (00:24→16:56)
--- NOTE | 2024-06-11 01:06 | PC.WOUNDNOTE ---
stage 2 to right lateral heel, base red with serousangineous drainage.
--- NOTE | 2024-06-11 04:50 | PC.NURSE ---
pt rested well through the night, no c/o reported. voiding well, no taking much oral intake even when offered. pt turned and repositioned. alert to name and place and situation
[2024-06-11] MEDS: HEPARIN SODIUM 5,000 UNIT/ML VIAL 5000 UNIT SQ ×3 (05:46→20:59)
[2024-06-11 05:55] LABS: POC Glucose,Bedside 96 (70-110)
[2024-06-11 07:25] LABS: Chloride 110 mmol/L (98-107); Potassium 3.1 mmoL/L (3.5-5.1); Sodium 136 mmol/L (136-145)
[2024-06-11 07:28] LABS: Blood Urea Nitrogen 13 mg/dl (7-17); Creatine Kinase 725 U/L (30-135); Creatinine Clearance Estimated 51 mL/min (50-200); Estimated Glomerular Filt Rate 118 ml/min (>60); GFR (African American) 143 ML/MIN (>60)
[2024-06-11 07:29] LABS: Anion Gap 4.1 mEq/L (5-15); Carbon Dioxide 25 mmol/L (22.0-30.0); Glucose 101 mg/dl (74-100)
[2024-06-11 07:33] LABS: Basophils # 0.1 K/mm3 (0-0.2); Basophils % 0.7 % (0.1-2.0); Eosinophils # 0.1 K/mm3 (0.0-0.4); Eosinophils % 1.6 % (0.1-12.0); Hematocrit 44.1 % (37.0-47.0); Hemoglobin 15.3 g/dL (12.2-16.2); Lymphocytes % 21.4 % (10-50); Mean Corpuscular HGB Conc 34.6 g/dL (31.8-35.4); Mean Corpuscular Hemoglobin 32.2 pg (27.0-31.2); Mean Platelet Volume 7.9 fl (7.4-10.4); Monocytes # 0.6 K/mm3 (0.1-1.0); Monocytes % 6.1 % (1.7-9.3); Neutrophils # 6.4 K/mm3 (1.8-7.8); Neutrophils % 70.2 % (37.0-80.0); Platelet Count 207 K/mm3 (142-424); Red Blood Count 4.74 M/mm3 (4.20-5.40); Red Cell Distribution Width 14.2 % (11.5-17.5); White Blood Count 9.1 K/mm3 (4.8-10.8)
[2024-06-11] MEDS: PRO-STAT AWC 30ML LIQUID PACKET 30 ML PO ×2 (08:26→20:58)
[2024-06-11] MEDS: DAPAGLIFLOZIN PROPANEDIOL 10 MG TABLET 5 MG PO (08:26)
[2024-06-11] MEDS: NYSTATIN TOPICAL POWDER 30GM TP ×2 (08:27→21:00)
[2024-06-11] MEDS: POTASSIUM CHLORIDE 20MEQ TAB 40 MEQ PO ×2 (08:42→20:59)
[2024-06-11 10:50] LABS: POC Glucose,Bedside 136 (70-110)
[2024-06-11] MEDS: AMLODIPINE 5MG TABLET 5 MG PO (11:12)
[2024-06-11] MEDS: LISINOPRIL 20MG TABLET 20 MG PO (11:12)
[2024-06-11 16:23] LABS: POC Glucose,Bedside 137 (70-110)
--- NOTE | 2024-06-11 16:35 | P.PN_ITS ---
Subjective *Date: 06/11/24 *Time: 16:35 Interval history: Patient feeling better this morning. On room air. Denies any muscle aches or pains. Making adequate urine. Tolerating p.o. intake Medical Exam Vital signs and Labs for Last 24 Hours: Vital Signs Temp Pulse Resp BP Pulse Ox O2 Del Method 06/11/24 15:44 98.5 F 93 H 18 159/75 H 96 Room Air 06/11/24 14:36 Room Air 06/11/24 13:00 Room Air 06/11/24 12:00 98.2 F 93 H 18 159/75 H 95 Room Air 06/11/24 10:44 Room Air 06/11/24 08:00 Room Air 06/11/24 07:36 98.3 F 92 H 18 190/86 H 92 L Room Air 06/11/24 06:55 Room Air 06/11/24 05:00 Room Air 06/11/24 04:00 97.9 F 82 18 155/75 H 98 Room Air 06/11/24 03:00 Room Air 06/11/24 01:00 Room Air 06/11/24 00:00 98.2 F 84 16 174/79 H 93 L Room Air 06/10/24 23:00 Room Air 06/10/24 21:02 Room Air 06/10/24 21:00 Room Air 06/10/24 18:49 Room Air 06/10/24 16:38 Room Air Intake and Output 06/11/24 06/11/24 06/11/24 07:59 15:59 23:59 Intake Total 2231 / 4936 1100 / 4936 1605 / 4936 Output Total 2099 / 2099 Balance 2231 / 2836 -1000 / 2836 1605 / 2836 Intake: Intake, Oral Amount 720 / 1800 600 / 1800 480 / 1800 Intake, Total IV Amount 1511 / 3136 500 / 3136 1125 / 3136 0.9 % Sodium Chloride 1000ML 1, 1511 / 3136 500 / 3136 1125 / 3136 000 ml @ 125 mls/hr IV .Q8H [facility] Rx#:[id number] Output: Output, Urine Amount 2100 / 2100 Other: Number of Voids 4 Number of Unmeasured Voids 1 0 Weight 73.573 kg Patient Weight 06/11/24 23:59 Weight 73.573 kg Laboratory Results - last 24 hr 06/10/24 20:52: POC Glucose 135 H 06/11/24 05:44: POC Glucose 96 06/11/24 06:30: WBC 9.1, RBC 4.74, Hgb 15.3, Hct 44.1, MCV 93.0, MCH 32.2 H, MCHC 34.6, RDW 14.2, Plt Count 207, MPV 7.9, Neut % (Auto) 70.2, Lymph % (Auto) 21.4, [place] % (Auto) 6.1, Eos % (Auto) 1.6, Baso % (Auto) 0.7, Neut # (Auto) 6.4, Lymph # (Auto) 2.0, [place] # (Auto) 0.6, Eos # (Auto) 0.1, Baso # (Auto) 0.1, Sodium 136, Potassium 3.1 L, Chloride 110 H, Carbon Dioxide 25, Anion Gap 4.1 L, BUN 13 D, Creatinine 0.50 L D, Estimated Creat Clear 51, Estimated GFR 118, Est GFR ( Amer) 143 D, Glucose 101 H, Calcium 8.0 L, Total Creatine Kinase 725 H* D 06/11/24 10:39: POC Glucose 136 H 06/11/24 16:14: POC Glucose 137 H I & O for Labs for Last 24 Hours: Intake & Output 06/08/24 06/09/24 06/10/24 06/11/24 23:59 23:59 23:59 23:59 Intake Total 1800 / 1800 3491 / 4472 4936 / 4936 Output Total 325 / 325 2100 / 2100 Balance 1800 / 1800 3166 / 4147 2836 / 2836 Weight 68.294 kg 70.845 kg 73.573 kg Microbiology Reports for the Last 24 Hours: Microbiology 06/09/24 08:53 Blood Blood Culture - Preliminary NO GROWTH AFTER 48 HOURS 06/09/24 11:05 Blood Blood Culture - Preliminary NO GROWTH AFTER 48 HOURS 06/09/24 10:17 Urine,Clean Catch Urine Culture - Final No growth. Constitutional: Present no acute distress, average body habitus and chronically ill appearing Head: Present atraumatic and normocephalic ENT: Present normal exam Neck: Present normal inspection Respiratory: Present normal respiratory effort; Absent rhonchi, wheezes or crackles Cardiac: Present Reg Rate and Rhythm GI: Present soft and normal bowel sounds; Absent distention or tenderness Extremities: Present normal inspection, full ROM and edema (Trace bilateral lower extremity) Skin: Present intact; Absent erythema Neuro: Present Grossly Intact and moves all extremities Assessment and Plan *Assessment and plan (1) Rhabdomyolysis: Status: Acute Category: Medical Code(s): M62.82 - Rhabdomyolysis (2) Hypertension: Status: Acute Category: Medical Code(s): I10 - Essential (primary) hypertension (3) Type 2 diabetes mellitus: Status: Acute Qualifiers: Diabetes mellitus termite control representative insulin use: with fpc use Diabetes mellitus complication status: with other specified complication Qualified Code(s): E11.69 - Type 2 diabetes mellitus with other specified complication; Z79.4 - buttermaker continuous churn (current) use of insulin Category: Medical Code(s): E11.9 - Type 2 diabetes mellitus without complications (4) [place]ACE (acute kidney injury): Status: Acute Category: Medical Code(s): N17.9 - Acute kidney failure, unspecified Plan Patient is a 83-year-old female with past medical history of diabetes mellitus who presents to the hospital due to complaints of difficulty ambulation as well as generalized weakness. According to the patient's family patient has been feeling very weak and was not able to get out of the bath, I felt. Patient was found lying down on the ground in the living room. Patient otherwise denied chest pain shortness of breath nausea vomiting diarrhea constipation dysuria. On further evaluation patient was found to have elevated creatinine and CK levels. Doing better with IV fluids. CK improving. Kidney function normalized. Awaiting insurance approval to go to rehab. Problems addressed as follows: Generalized weakness, difficulty ambulation likely secondary to rhabdomyolysis Acute kidney injury -Discontinue IV fluids. Tolerating p.o. intake. -Rhabdomyolysis resolving, CK decreased from 40 400-725 this morning on labs. Repeat CK level ordered for the morning -Kidney function normal with BUN 13, creatinine 0.5. Making adequate urine. Repeat CBC, CMP ordered for the morning -Continue to hold statin. Hypokalemia: Potassium 3.1. Replacing orally with 40 mEq 3 times a day, repeat potassium level ordered for the morning Blood pressure increasing: Resume amlodipine and EVERETT inhibitor for hypertension Diabetes: Continue sliding scale insulin with fingersticks ACHS DVT PPx - Heparin Full code Diabetic diet
--- NOTE | 2024-06-11 16:38 | PC.NURSE ---
pt has remained on room air this shift and has been satting in the 90s. pt has been a&ox4 this shift, but has had periods of confusion. pt ambulated with PT/OT this afternoon w/ x1 assistance and walker. pt has had no complaints throughout this shift. family visited w/ pt earlier in this shift. pt has been resting in chair majority of this shift. pt's home blood pressure medications were restarted this a.m. during morning rounds. no new orders at this time. call light within reach.
[2024-06-11] MEDS: humaLOG 100 UNITS/ML 10ML VIAL (SSI) SQ (21:06)
[2024-06-11 21:10] LABS: POC Glucose,Bedside 161 (70-110)
[2024-06-12] MEDS: 0.9 % SODIUM CHLORIDE 1000ML 1,000 ML 125 ML IV (01:29)
[2024-06-12 04:00] VITALS: BP 164/88; PULSE 89; RESP 16; TEMP 36.5; O2SAT 95; BMI 28.0
--- NOTE | 2024-06-12 04:29 | PC.NURSE ---
Patient has remained alert and oriented x4 throughout shift with slight redirecting when patient first awakens. Tolerating room air well with O2 stats >90%. Patient had one large bowel movement earlier this shift, diarrhea consistency. No complaints or needs expressed this shift. Patient turned q2h. Bed alarm on for patient safety. Call light within reach.
[2024-06-12] MEDS: HEPARIN SODIUM 5,000 UNIT/ML VIAL 5000 UNIT SQ (06:18)
[2024-06-12 06:59] LABS: Basophils # 0.1 K/mm3 (0-0.2); Basophils % 0.7 % (0.1-2.0); Eosinophils # 0.2 K/mm3 (0.0-0.4); Eosinophils % 2.6 % (0.1-12.0); Hemoglobin 14.7 g/dL (12.2-16.2); Lymphocytes # 1.9 K/mm3 (0.7-4.5); Mean Corpuscular HGB Conc 36.7 g/dL (31.8-35.4); Mean Corpuscular Hemoglobin 34.1 pg (27.0-31.2); Monocytes # 0.6 K/mm3 (0.1-1.0); Monocytes % 7.5 % (1.7-9.3); Neutrophils # 5.2 K/mm3 (1.8-7.8); Neutrophils % 65.3 % (37.0-80.0); Platelet Count 208 K/mm3 (142-424); Red Cell Distribution Width 14.2 % (11.5-17.5)
[2024-06-12 07:22] LABS: Chloride 112 mmol/L (98-107); Sodium 136 mmol/L (136-145)
[2024-06-12 07:25] LABS: Blood Urea Nitrogen 16 mg/dl (7-17); Carbon Dioxide 23 mmol/L (22.0-30.0); Creatine Kinase 222 U/L (30-135); Creatinine Clearance Estimated 50 mL/min (50-200); Estimated Glomerular Filt Rate 96 ml/min (>60); GFR (African American) 116 ML/MIN (>60); Glucose 117 mg/dl (74-100)
--- NOTE | 2024-06-12 07:46 | EXP.DC.SUM ---
General Admission date:: 06/09/24 Discharge date: 06/12/24 HPI HPI HPI: Patient is a 83-year-old female with past medical history of diabetes mellitus who presents to the hospital due to complaints of difficulty ambulation as well as generalized weakness. According to the patient's family patient has been feeling very weak and was not able to get out of the bath, I felt. Patient was found lying down on the ground in the living room. Patient otherwise denied chest pain shortness of breath nausea vomiting diarrhea constipation dysuria. On further evaluation patient was found to have elevated creatinine and CK levels. Hospital Course Hospital Course Hospital Course: Patient is a 83-year-old female with past medical history of diabetes mellitus who presents to the hospital due to complaints of difficulty ambulation as well as generalized weakness. According to the patient's family patient has been feeling very weak and was not able to get out of the bath, I felt. Patient was found lying down on the ground in the living room. Patient otherwise denied chest pain shortness of breath nausea vomiting diarrhea constipation dysuria. On further evaluation patient was found to have elevated creatinine and CK levels. Doing better with IV fluids. CK improving. Kidney function normalized. Evaluated by therapy. Needs rehab. Approved for [facility]. Will discharge to their care for further management. Problems addressed as follows: Generalized weakness, difficulty ambulation likely secondary to rhabdomyolysis Acute kidney injury -Presented with elevated CK, weakness, electrolyte disturbances and kidney injury. CK elevated at 4400. Improved with fluid resuscitation to 222 by morning of discharge. Kidney function and electrolytes normalized. BUN 16, creatinine 0.6 on day of discharge. Potassium normal at 4.0. Given the normalization of her kidney function and electrolytes, resumed home blood pressure regimen consisting of amlodipine and benazepril. Recommend repeat labs in 1 week. Would continue to hold statin in the setting of her muscle injury. Consider resuming simvastatin in 2 weeks -Evaluated by therapy. Given her weakness, would benefit from rehab in hopes of achieving independent level of mobility to return home. Hypokalemia: Potassium low during admission. Improved to 4.0 on day of discharge. Continue oral repletion once daily. Hypertension: Blood pressure meds held initially due to acute kidney injury. Resumed prior to discharge. Blood pressure 164/88 morning of discharge prior to medications. Overall doing well and asymptomatic. Diabetes: Was treated with sliding scale insulin during admission along with dapagliflozin. Diabetes well-controlled. Required less than 2 units of insulin a day. Would benefit from A1c as an outpatient for further management. Resuming home regimen at discharge. Stable to discharge to rehab at [facility]. Exam Data for Last 24 hours Vital signs and Labs for Last 24 Hours: Temp Pulse Resp BP Pulse Ox O2 Del Method O2 Flow Rate 98.3 F 92 H 18 190/86 H 92 L Room Air 2 06/11/24 07:36 06/11/24 07:36 06/11/24 07:36 06/11/24 07:36 06/11/24 07:36 06/11/24 10:44 06/09/24 20:00 Laboratory Results - last 24 hr 06/10/24 16:10: POC Glucose 101 06/10/24 20:52: POC Glucose 135 H 06/11/24 05:44: POC Glucose 96 06/11/24 06:30: WBC 9.1, RBC 4.74, Hgb 15.3, Hct 44.1, MCV 93.0, MCH 32.2 H, MCHC 34.6, RDW 14.2, Plt Count 207, MPV 7.9, Neut % (Auto) 70.2, Lymph % (Auto) 21.4, Motley % (Auto) 6.1, Eos % (Auto) 1.6, Baso % (Auto) 0.7, Neut # (Auto) 6.4, Lymph # (Auto) 2.0, Motley # (Auto) 0.6, Eos # (Auto) 0.1, Baso # (Auto) 0.1, Sodium 136, Potassium 3.1 L, Chloride 110 H, Carbon Dioxide 25, Anion Gap 4.1 L, BUN 13 D, Creatinine 0.50 L D, Estimated Creat Clear 51, Estimated GFR 118, Est GFR ( Amer) 143 D, Glucose 101 H, Calcium 8.0 L, Total Creatine Kinase 725 H* D 06/11/24 10:39: POC Glucose 136 H I & O for Last 24 hours: Intake & Output 06/08/24 06/09/24 06/10/24 06/11/24 23:59 23:59 23:59 23:59 Intake Total 1800 / 1800 3491 / 4472 3211 / 3211 Output Total 325 / 325 1650 / 1650 Balance 1800 / 1800 3166 / 4147 1561 / 1561 Weight 68.294 kg 70.845 kg 73.573 kg Microbiology Reports for the Last 24 Hours: Microbiology 06/09/24 08:53 Blood Blood Culture - Preliminary NO GROWTH AFTER 48 HOURS 06/09/24 11:05 Blood Blood Culture - Preliminary NO GROWTH AFTER 48 HOURS 06/09/24 10:17 Urine,Clean Catch Urine Culture - Final No growth. Constitutional Constitutional: no acute distress, average body habitus, chronically ill appearing and cooperative *Routine HEENT Exam Head: Present normocephalic Eye: Present EOMI and PERRL ENT: Present mucous membranes moist *Routine Neck Exam Neck: Present supple; Absent lymphadenopathy *Routine Respiratory Exam Respiratory: Present CTA bilaterally; Absent rhonchi, wheezes or crackles *Routine Cardiovascular Exam Cardiovascular: Present RRR *Routine Abdominal Exam Abdominal: Present soft and normoactive bowel sounds; Absent tenderness *Routine Rectal Exam Patient deferred: visual exam *Routine Exam Patient deferred: external exam *Routine Extremities Exam Extremities: Present edema (1+ BLE); Absent cyanosis or clubbing *Routine Skin Exam Skin: Present warm; Absent rash *Routine Neurological Exam Neurological: Present alert, oriented X3 and moving all extremities; Absent altered mental status Results Data Completed and Pending Labs on day of discharge: Labs from last 24 hours 06/11/24 06/11/24 06/11/24 10:39 06:30 05:44 WBC 9.1 RBC 4.74 Hgb 15.3 Hct 44.1 MCV 93.0 MCH 32.2 H MCHC 34.6 RDW 14.2 Plt Count 207 MPV 7.9 Neut % (Auto) 70.2 Lymph % (Auto) 21.4 Motley % (Auto) 6.1 Eos % (Auto) 1.6 Baso % (Auto) 0.7 Neut # (Auto) 6.4 Lymph # (Auto) 2.0 Motley # (Auto) 0.6 Eos # (Auto) 0.1 Baso # (Auto) 0.1 Sodium 136 Potassium 3.1 L Chloride 110 H Carbon Dioxide 25 Anion Gap 4.1 L BUN 13 D Creatinine 0.50 L D Estimated Creat Clear 51 Estimated GFR 118 Est GFR ( Amer) 143 D Glucose 101 H POC Glucose 136 H 96 Calcium 8.0 L Total Creatine Kinase 725 H* D 06/10/24 06/10/24 20:52 16:10 WBC RBC Hgb Hct MCV MCH MCHC RDW Plt Count MPV Neut % (Auto) Lymph % (Auto) Motley % (Auto) Eos % (Auto) Baso % (Auto) Neut # (Auto) Lymph # (Auto) Motley # (Auto) Eos # (Auto) Baso # (Auto) Sodium Potassium Chloride Carbon Dioxide Anion Gap BUN Creatinine Estimated Creat Clear Estimated GFR Est GFR ( Amer) Glucose POC Glucose 135 H 101 Calcium Total Creatine Kinase Preliminary micro results at discharge 06/09/24 08:53 Blood Culture - Preliminary Blood NO GROWTH AFTER 48 HOURS 06/09/24 11:05 Blood Culture - Preliminary Blood NO GROWTH AFTER 48 HOURS DS: Diagnosis Discharge Diagnosis (1) Rhabdomyolysis: Status: Acute Code(s): M62.82 - Rhabdomyolysis (2) Type 2 diabetes mellitus: Status: Acute Code(s): E11.9 - Type 2 diabetes mellitus without complications Qualifiers: Diabetes mellitus complication status: with other specified complication Diabetes mellitus termite control representative insulin use: with termite control representative use Qualified Code(s): E11.69 - Type 2 diabetes mellitus with other specified complication; Z79.4 - MCFP (current) use of insulin (3) PEACE (acute kidney injury): Status: Acute Code(s): N17.9 - Acute kidney failure, unspecified Meds Home Medications and Allergies Home Medications ?Medication ?Instructions ?Recorded ?Confirmed ?Type amlodipine 5 mg-benazepril 20 mg 1 cap PO DAILY 10/21/21 06/09/24 History capsule blood sugar diagnostic (Govenlock GreenTouch #10 ea 10/21/21 06/09/24 History Verio test strips) blood-glucose meter ([employer] GreenTouch #1 ea 10/21/21 06/09/24 History Verio Reflect Meter) insulin syringe-needle U-100 0.5 #10 ea 10/21/21 06/09/24 History mL 29 gauge x 1/2 (Sure Comfort Insulin Syringe U-100) lancets 33 gauge ([employer]lock GreenTouch Delica #100 ea 10/21/21 06/09/24 History Plus Lancet) simvastatin 20 mg tablet 20 mg PO DAILY 10/21/21 06/09/24 History dapagliflozin propanediol 5 mg 5 mg PO DAILY 12/13/23 06/09/24 History tablet (Farxiga) semaglutide 1 mg/dose (4 mg/3 mL) 1 mg SQ WEEKLY 06/09/24 06/09/24 History subcutaneous pen injector (Ozempic) potassium chloride 20 mEq 20 meq PO DAILY #0 tabs 06/12/24 Rx tablet,extended release(part/cryst) (Klor-Con M) New Prescriptions to Start Prescriptions: Allergies Allergy/AdvReac Type Severity Reaction Status Date / Time No Known Allergies Allergy Verified 06/06/24 14:20 Discharge Plan Disposition Patient Disposition: Xfer SNF Condition: Fair Discharge Order Discharge Orders: Discharge Order (Routine); Ordered 06/12/24 Ordered By: Enrique Carpio Follow up Plan Prescriptions/Medication Reconciliation: New potassium chloride [Klor-Con M20] 20 mEq Tablet,Er Particles/Crystals 20 meq PO DAILY Qty: 0 0RF Continued (DME) insulin syringe-needle U-100 [Sure Comfort Ins. Syr. U-100] 0.5 mL 29 gauge x 1/2 syringe See Rx Instructions .ROUTE .MEDSUPPLY Qty: 10 Rx Instructions: As directed (DME) OneTouch Verio test strips Strip See Rx Instructions .ROUTE .MEDSUPPLY Qty: 10 Rx Instructions: As directed simvastatin 20 mg tablet 20 mg PO DAILY amlodipine-benazepril 5-20 mg capsule 1 cap PO DAILY (DME) lancets [OneTouch Delica Plus Lancet] 33 gauge misc See Rx Instructions .ROUTE .MEDSUPPLY Qty: 100 Rx Instructions: As directed (DME) blood-glucose meter [OneTouch Verio Reflect Meter] Misc See Rx Instructions .ROUTE .MEDSUPPLY Qty: 1 Rx Instructions: As directed dapagliflozin propanediol [Farxiga] 5 mg tablet 5 mg PO DAILY Ozempic 1 mg/dose (4 mg/3 mL) pen injector 1 mg SQ WEEKLY Patient Comments: INJECT 1MG SUBCUTANEOUSLY ONCE WEEKLY Problem Reconciliation Problems Reviewed?: Yes Patient Discharge Instructions ACTIVITY: Continue current activity DIET: continue same diet Patient Instructions: DI for Rhabdomyolysis, DI for Acute Kidney Injury Print Language: Scottish Providers Primary Care Provider: Sj Navarro Admit Provider: Alok Gilmore Attending Provider: Alok Gilmore
[2024-06-12 08:00] VITALS: BP 167/82; PULSE 87; RESP 17; TEMP 36.7; O2SAT 95
[2024-06-12] MEDS: DAPAGLIFLOZIN PROPANEDIOL 10 MG TABLET 5 MG PO (08:33)
[2024-06-12] MEDS: PRO-STAT AWC 30ML LIQUID PACKET 30 ML PO (08:33)
[2024-06-12] MEDS: LISINOPRIL 20MG TABLET 20 MG PO (08:33)
[2024-06-12] MEDS: POTASSIUM CHLORIDE 20MEQ TAB 40 MEQ PO (08:33)
[2024-06-12] MEDS: AMLODIPINE 5MG TABLET 5 MG PO (08:33)
[2024-06-12] MEDS: NYSTATIN TOPICAL POWDER 30GM TP (08:34)
== END 2024-06-12 10:38 | DRG 558 ==
LOC: ER 10:33 → 2ND 13:17
PROVIDERS: Admitting Provider Internal Medicine; Emergency Provider Emergency Medicine; PCP Family Medicine; Visit Provider Internal Medicine
DX: M62.82 Rhabdomyolysis (principal); N17.9 Acute kidney failure, unspecified; I10 Essential (primary) hypertension; Z79.85 Long-term (current) use of injectable non-insulin antidiabetic drugs; Z79.4 Long term (current) use of insulin; E87.6 Hypokalemia; E11.9 Type 2 diabetes mellitus without complications
CPT/HCPCS: 36415; 70450; 71045; 72125; 80048; 80053; 81001; 82550; 82803; 82962; 83605; 83690; 83735; 85025; 87040; 87086; 97110; 97162; 97165; 97530; 99285; J1644; J7120

== ENCOUNTER 2024-06-26 07:09 | Emergency (ER) | payer MEDICARE, SELFPAY ==
[2024-06-26 07:10] VITALS: RESP 0; O2SAT 0; BMI 25.4
--- NOTE | 2024-06-26 07:28 | HMH.EDGENADL ---
Discharge Plan Disposition Patient Disposition: Date/Time: 06/26/24 11:30 Clinical Impressions Clinical Impression: Cardiac arrest Discharge ED Provider: Farzad Ramsey General Adult HPI General Chief complaint: Cardiac Arrest/CPR Stated complaint: Code 500 Time Seen by Provider: 06/26/24 07:16 Mode of Arrival: EMS Source of Information: EMS Limitations: cardiac arrest History of Present Illness HPI narrative: This is a 83-year-old female with a history of type 2 diabetes and hypertension recently placed in a jail who presents with cardiac arrest. Patient was reportedly sitting on the toilet this morning whenever she fell over from an unknown etiology and hit her face. Was noted to be not breathing without a pulse on initial evaluation by jail staff and CPR was initiated. Upon EMS arrival, CPR had been ongoing for approximately 15 minutes. EMS obtained IV access and continued CPR with 2 doses of epinephrine administered. Transported to for further evaluation care. Unable to intubate and bruit and unable to place LMA. CPR ongoing for 45 minutes total upon arrival. Related Data Home Medications ?Medication ?Instructions ?Recorded ?Confirmed amlodipine 5 mg-benazepril 20 mg 1 cap PO DAILY 10/21/21 06/09/24 capsule blood sugar diagnostic (TheCommentorTouch #10 ea 10/21/21 06/09/24 Verio test strips) blood-glucose meter (AVA Solaruch #1 ea 10/21/21 06/09/24 Verio Reflect Meter) insulin syringe-needle U-100 0.5 #10 ea 10/21/21 06/09/24 mL 29 gauge x 1/2 (Sure Comfort Insulin Syringe U-100) lancets 33 gauge (TheCommentorTouch Delica #100 ea 10/21/21 06/09/24 Plus Lancet) simvastatin 20 mg tablet 20 mg PO DAILY 10/21/21 06/09/24 dapagliflozin propanediol 5 mg 5 mg PO DAILY 12/13/23 06/09/24 tablet (Farxiga) semaglutide 1 mg/dose (4 mg/3 mL) 1 mg SQ WEEKLY 06/09/24 06/09/24 subcutaneous pen injector (Ozempic) Previous Rx's ?Medication ?Instructions ?Recorded potassium chloride 20 mEq 20 meq PO DAILY #0 tabs 06/12/24 tablet,extended release(part/cryst) (Klor-Con M) Allergies Allergy/AdvReac Type Severity Reaction Status Date / Time No Known Allergies Allergy Verified 06/06/24 14:20 [facility] Disclaimer: The information contained in this section may have been updated after the patient was seen, as this information can be updated by other users. Medical History (Updated 06/26/24 @ 08:43 by Farzad Ramsey MD) Hypertension Social History Smoking Status: Never smoker alcohol intake: never substance use type: denies use current occupational status: retired Travel in the last 8 weeks: None ROS Obtained: Yes unobtainable due to mental status Physical Exam General General appearance: other (Unresponsive, CPR ongoing) Head Head exam: other (Left periorbital hematoma) Eye Eye exam: Present other (Fixed and dilated pupils) Chest Chest inspection: Present other (Chest compressions ongoing) Respiratory Respiratory exam: Present other (Irc-[id number] ventilations ongoing) Cardiovascular Cardiovascular exam: Present other (cardiac arrest) Abdominal Exam Abdominal exam: Present soft Extremities Exam Extremities exam: Present normal inspection Neurological Exam Neurological exam: Present other (GCS 3) Skin Skin exam: Present other (Cool, mottled skin) Medical Decision Making Medical Records Medical records reviewed: Yes I reviewed the patient's medical records. MR Comment: residential documentation noting patient's past medical history [place]ino Inquiry Pt receiving controlled substance: No Vital Signs: 06/26/24 07:10 06/26/24 11:30 Temperature 0 F L Pulse Rate 0 L Respiratory Rate 0 L 0 L Blood Pressure 0/0 L 02 Sat by Pulse Oximetry 0 L Oxygen Delivery Method Ambu-Bag Orders (Tests/Meds): ED MEDICATIONS Discontinued Medications Generic Name Dose Route Start
--- NOTE | 2024-06-26 07:37 | PC.NURSE ---
EMS CALLED AT 0640 TO [facility] FOR A PT WITH FALL, NOT BREATHING, CPR STARTED BY GROUP HOME STAFF ABOUT 15 MINUTES BEFORE CALLING EMS 0708 ARRIVAL, CPR IN PROGRESS, #20 LAC, UNABLE TO INTUBATE PER EMS MOVED TO [facility], CPR CONTINUES. NO INTUBATION AT THIS TIME, BAG-VALVE MASK IN USE 0710 RHYTHM CHECK-ASYSTOLE, CONTINUE COMPRESSIONS 0711 1MG EPI, IV 0712 PULSE CHECK-ASYSTOLE 0713 CODE CALLED, TIME OF PER DR GAONA
--- NOTE | 2024-06-26 08:00 | PC.NURSE ---
3345 GRAPHITE GRINDER NOTIFIED, RAQUEL MOYA 3283 GRAPHITE GRINDER AT BEDSIDE
--- NOTE | 2024-06-26 08:03 | PC.NURSE ---
0755 JORDANA NOTIFIED CASE [id number], RULED OUT AT THIS TIME CHEYENNE MIRZA BOOT LACE CUTTER MACHINE
--- NOTE | 2024-06-26 08:04 | PC.NURSE ---
0730 POST-MORTEM CARE PERFORMED
--- NOTE | 2024-06-26 08:44 | PC.NURSE ---
FAMILY UPDATED BY DR GAONA, [facility]
[2024-06-26 11:30] VITALS: BP 0/0; PULSE 0; RESP 0; TEMP -17.7; TEMP 0
--- NOTE | 2024-06-26 11:30 | PC.NURSE ---
BODY RELEASED TO [facility]
--- NOTE | 2024-06-28 11:29 | P.DN_ITS ---
Pronouncement Note Date and Time of Date of : 06/26/24 Time of : 07:13 PCOD Preliminary cause of : Cardiopulmonary arrest Contributing Factors (1) Cardiac arrest: Summary Additional details: Patient presented with undifferentiated cardiopulomonary arrest from her intermediate. She was found down in front of her toilet by intermediate staff. Down for a total of 45 minutes with chest compressions initiated by intermediate staff for 15 minutes and continued by EMS for a total of 30 minutes prior to arrival. EMS unable to intubate or place LMA. Initial rhythm PEA and persistent nonshockable rhythm throughout ACLS. Resuscitative measures discontinued after two more rounds in the ED due to exceedingly poor prognosis. Additional Data Confirmation of : no pulse, no respirations, no heart sounds and pupils fixed and dilated Family: contacted Attending/PCP notified?: No Attending physician: Farzad Ramsey MD Was code activated?: Yes Autopsy should be considered if:: Unknown or unanticipated medical complications Cause is not known with certainty on clinical grounds Would allay concerns of the public/family regarding Unexplained/unexpected apparently natural and not subject to a forensic medical jurisdiction DOA Within 24 hours of admission Sustained or apparently sustained injury while in the hospital Result of high risk, infectious and contagious disease Obstetric and pediatric arising from environmental or occupational hazard Unexplained/unexpected from dental, medical, or surgical diagnostic procedures and/or therapies Would disclose a known or suspected illness which also may have a bearing on survivors or recipients of transplanted organs Autopsy requested?: No Refused by family loan examiner notified?: Yes Organ bank notified?: Yes Advance directives: No
== END 2024-06-26 11:30 | disposition expired ==
PROVIDERS: Emergency Provider Student in an Organized Health Care Education/Training Program
DX: I46.9 Cardiac arrest, cause unspecified (principal)
CPT/HCPCS: 92950; 96374; 99291